=== PATIENT | male | born 1980 | race Hispanic/Latino ===

== ENCOUNTER 2021-01-19 10:48 | Emergency (ER) | payer OTHER ==
--- NOTE | 2021-01-19 12:20 | Emergency Department Report ---
- General Chief complaint: Wound/Laceration Stated complaint: PIECE OF METAL IN STOMACH Time Seen by Provider: 01/19/21 11:27 Source: patient Mode of arrival: Ambulatory Limitations: No Limitations - History of Present Illness Initial comments: Patient is a 40-year-old male that comes to the ER after working on some machinery and having a piece of metal zamzam off of a josefina impaling in his subcutaneous adipose tissue of his abdomen. On arrival, via POV, patient is ambulatory and [id number]. He has a small puncture wound at the left upper quadrant area of the abdomen. There is no bleeding. Abdomen is nontender MD complaint: other -: Sudden, hour(s) Tetanus Up to Date: no Severity: moderate Quality: stabbing Consistency: constant Improves with: none Worsens with: none Associated symptoms: denies other symptoms Treatments Prior to Arrival: none - Related Data Previous Rx's Medication Instructions Recorded Last Taken Type Clindamycin [Clindamycin CAP] 300 mg PO Q6H #40 capsule 01/19/21 Unknown Rx Ibuprofen [Motrin] 800 mg PO Q8HR PRN #30 tablet 01/19/21 Unknown Rx Allergies Allergy/AdvReac Type Severity Reaction Status Date / Time No Known Allergies Allergy Unverified 01/19/21 11:07 Abscess Boil HPI - HPI Chief Complaint: Wound/Laceration Stated Complaint: PIECE OF METAL IN STOMACH Time Seen by Provider: 01/19/21 11:27 Home Medications: Previous Rx's Medication Instructions Recorded Last Taken Type Clindamycin [Clindamycin CAP] 300 mg PO Q6H #40 capsule 01/19/21 Unknown Rx Ibuprofen [Motrin] 800 mg PO Q8HR PRN #30 tablet 01/19/21 Unknown Rx Allergies/Adverse Reactions: Allergies Allergy/AdvReac Type Severity Reaction Status Date / Time No Known Allergies Allergy Unverified 01/19/21 11:07 ED Review of Systems ROS: Stated complaint: PIECE OF METAL IN STOMACH Other details as noted in HPI Comment: All other systems reviewed and negative ED Past Medical Hx - Past Medical History Previous Medical History?: No - Surgical History Past Surgical History?: No - Family History Family history: no significant - Social History Smoking Status: Current Every Day Smoker Substance Use Type: None - Medications Home Medications: Home Medications Medication Instructions Recorded Confirmed Last Taken Type Clindamycin [Clindamycin CAP] 300 mg PO Q6H #40 capsule 01/19/21 Unknown Rx Ibuprofen [Motrin] 800 mg PO Q8HR PRN #30 tablet 01/19/21 Unknown Rx ED Physical Exam - General Limitations: No Limitations General appearance: alert, in no apparent distress - Head Head exam: Present: atraumatic, normocephalic - Eye Eye exam: Present: normal appearance - ENT ENT exam: Present: mucous membranes moist - Neck Neck exam: Present: normal inspection - Respiratory Respiratory exam: Present: normal lung sounds bilaterally. Absent: respiratory distress - Cardiovascular Cardiovascular Exam: Present: regular rate, normal rhythm. Absent: systolic murmur, diastolic murmur, rubs, gallop - GI/Abdominal GI/Abdominal exam: Present: soft, normal bowel sounds - Rectal Rectal exam: Present: deferred - Extremities Exam Extremities exam: Present: normal inspection - Back Exam Back exam: Present: normal inspection - Neurological Exam Neurological exam: Present: alert, oriented X3 - Psychiatric Psychiatric exam: Present: normal affect, normal mood - Skin Skin exam: Present: warm, dry, normal color, other. Absent: rash - Expanded Skin Exam Expanded 1 - Puncture wound with a diameter of less than 1/8 inch ED Course Vital Signs 01/19/21 01/19/21 11:08 11:30 Temperature 98.4 F Pulse Rate 97 H Respiratory 20 15 Rate Blood Pressure 141/90 [Right] O2 Sat by Pulse 96 Oximetry - I & D abd Type of Procedure: Simple Site: 3/4 inch incision Blade Size: 11 I & D Procedure: betadine prep Progress: Abdominal area cleaned. Using sterile technique, a 1 mL of 1% lidocaine was injected. A #11 blade was used to open the puncture site. Hemostats were used to explore the wound and retrieve the foreign body. Wound was then irrigated cleaned and dressed. Patient tolerated well. Patient verbalizes understanding of wound care. ED Medical Decision Making - Radiology Data Radiology results: report reviewed, image reviewed Foreign body in subcutaneous tissue - Medical Decision Making X-ray noted. Foreign body removed without difficulty Wound cleaned Tdap updated IM Clinda given x1, patient states he thinks he is allergic to Rocephin. Patient being discharged home with discharge plan of care. He verbalizes unde rstanding of plan of care. Have given him referral with primary care doctor. Vital Signs 01/19/21 01/19/21 11:08 11:30 Temperature 98.4 F Pulse Rate 97 H Respiratory 20 15 Rate Blood Pressure 141/90 [Right] O2 Sat by Pulse 96 Oximetry - Differential Diagnosis Rule out bowel perforation Critical care attestation.: If time is entered above; I have spent that time in minutes in the direct care of this critically ill patient, excluding procedure time. ED Disposition Clinical Impression: Puncture wound, Foreign body (FB) in soft tissue, H/O retained foreign body fully removed Disposition: DC- TO HOME OR SELFCARE Is pt being admited?: No Does the pt Need Aspirin: No Condition: Stable Instructions: Laceration Care, Adult Additional Instructions: keep wound clean and covered medication until gone follow up with pcp for recheck next week tdap given today AND 1 GM IM rocephin Prescriptions: Clindamycin [Clindamycin CAP] 300 mg PO Q6H #40 capsule Ibuprofen [Motrin] 800 mg PO Q8HR PRN #30 tablet PRN Reason: Pain, Moderate (4-6) Referrals: PRIMARY CAREMD [Primary Care Provider] - 3-5 Days SOLITARIO BARTON MD [Staff Physician] - 3-5 Days Forms: Work/School Release Form(ED) Time of Disposition: 13:48
--- NOTE | 2021-01-19 13:22 | XRay Report ---
ABDOMEN 2 VIEW(S) INDICATION / CLINICAL INFORMATION: fb in abd wall. COMPARISON: None available. FINDINGS: TUBES / LINES: None. BOWEL GAS PATTERN: No significant abnormality. FREE AIR / EXTRALUMINAL GAS: None seen. ADDITIONAL FINDINGS: There is a 5 x 9 mm, and shape density overlying the left midabdomen. It is uncl ear if this is within the abdominal wall or peritoneal cavity. Please correlate with the image and th e patient. IMPRESSION: No acute process. Foreign body as described. Signer Name: Ashok Kaur Jr, MD Signed: 01/19/2021 1:17 PM Workstation Name: [id number]
--- NOTE | 2021-01-19 13:23 | XRay Report ---
ABDOMEN 1 VIEW(S) INDICATION / CLINICAL INFORMATION: lateral view- see note on prior order. COMPARISON: Abdomen 2 view performed earlier today FINDINGS: Lateral view of the abdomen was obtained and compared to the exam performed earlier today. The previo usly described foreign body is located within the subcutaneous tissues of the left anterior abdominal wall. Signer Name: Ashok Kaur Jr, MD Signed: 01/19/2021 1:18 PM Workstation Name: [id number]
[2021-01-19] MEDS ORDERED: HYDROcodone/ACETAMINOPHEN 5-325 MG TAB PO ONE (13:24)
[2021-01-19] MEDS ORDERED: SODIUM CHLORIDE 0.9% IRR 500 ML BOTTLE IR ONE (13:24)
[2021-01-19] MEDS ORDERED: TETANUS,DIPH,PERTUSS(ACELL) VACCINE 0.5 ML SYRINGE IM ONE (13:24)
[2021-01-19] MEDS ORDERED: LIDOCAINE (1%) 10 MG/1 ML VIAL 20 ML MDV INFILTRATI ONE (13:24)
[2021-01-19] MEDS ORDERED: LIDOCAINE-MPF (1%) 10 MG/1 ML VIAL 5 ML INFILTRATI ONE (13:25)
[2021-01-19] MEDS ORDERED: CLINDAMYCIN 150 MG/ML 2 ML VIAL IM ONE (14:30)
[2021-01-19 15:06] VITALS: BP 126/87
== END 2021-01-19 15:05 | disposition home or self-care (01) ==
LOC: ED 10:48
DX: S31.141A Puncture wound of abdominal wall with foreign body, left upper quadrant without penetration into peritoneal cavity, initial encounter (principal); F17.200 Nicotine dependence, unspecified, uncomplicated; Z79.1 Long term (current) use of non-steroidal anti-inflammatories (NSAID); Z79.2 Long term (current) use of antibiotics; Z88.8 Allergy status to other drugs, medicaments and biological substances; X58.XXXA Exposure to other specified factors, initial encounter; Y93.89 Activity, other specified; Y92.89 Other specified places as the place of occurrence of the external cause; Y99.0 Civilian activity done for income or pay
CPT/HCPCS: 10120; 74018; 74019; 90471; 90715; 96372; 99283; J0696